=== PATIENT | female | born 1980 | race Caucasian/White ===

== ENCOUNTER 2018-03-09 11:41 | Emergency (ER) | payer MEDICAID ==
--- NOTE | 2018-03-09 12:18 | EKG REPORT ---
SEVERITY:- BORDERLINE ECG - SINUS RHYTHM PROBABLE LEFT ATRIAL ABNORMALITY : Confirmed by: Lashell Seay MD 09-Mar-2018 12:17:57
[2018-03-09] MEDS ORDERED: ASPIRIN 325 MG TABLET PO ONE (12:19)
--- NOTE | 2018-03-09 12:26 | ER Document Report ---
ED Medical Screen (RME) - General Chief Complaint: Chest Pain > 30 Stated Complaint: CHEST PAIN Time Seen by Provider: 03/09/18 12:19 Mode of Arrival: Ambulatory Information source: Patient TRAVEL OUTSIDE OF THE [place] IN LAST 30 DAYS: No - HPI Patient complains to provider of: cp Onset: Yesterday - pt with onset of SSCP since last night. Denies SOB, N,V - Related Data Allergies/Adverse Reactions: No Known Allergies Allergy (Verified 03/09/18 11:42) Physical Exam - Vital signs Vitals: Temp Pulse Resp BP Pulse Ox 98.1 F 93 18 127/83 H 99 03/09/18 11:52 03/09/18 11:52 03/09/18 11:52 03/09/18 11:52 03/09/18 11:52 Course - Vital Signs Vital signs: Temp Pulse Resp BP Pulse Ox 98.1 F 93 18 127/83 H 99 03/09/18 11:52 03/09/18 11:52 03/09/18 11:52 03/09/18 11:52 03/09/18 11:52
[2018-03-09 12:54] LABS: ABSOLUTE EOSINOPHILS # (AUTO) 0.2 10^3/uL (0.0-0.6); ABSOLUTE LYMPHOCYTES (AUTO) 2.5 10^3/uL (0.5-4.7); ABSOLUTE MONOCYTES (AUTO) 0.8 10^3/uL (0.1-1.4); ABSOLUTE NEUT (AUTO) 7.5 10^3/uL (1.7-8.2); BASOPHILS % (AUTO) 0.1 % (0-2); EOSINOPHILS % (AUTO) 1.5 % (0-6); HEMATOCRIT 41.1 % (36.0-47.0); LYMPHOCYTES % (AUTO) 22.9 % (13-45); MEAN CORPUSCULAR HEMOGLOBIN 30.7 pg (27.0-33.4); MEAN CORPUSCULAR VOLUME 90 fl (80-97); PLATELET COUNT 313 10^3/uL (150-450); RED BLOOD COUNT 4.55 10^6/uL (3.72-5.28); RED CELL DISTRIBUTION WIDTH 12.8 % (11.5-14.0); SEGMENTED NEUTROPHILS % (AUTO) 68.5 % (42-78); TOTAL CELLS COUNTED % (AUTO) 100 %
[2018-03-09 13:29] LABS: ALANINE AMINOTRANSFERASE 54 U/L (9-52); ALBUMIN 4.5 g/dL (3.5-5.0); ALKALINE PHOSPHATASE 116 U/L (38-126); ANION GAP 12 (5-19); ASPARTATE AMINO TRANSFERASE 28 U/L (14-36); BILIRUBIN,DIRECT 0.2 mg/dL (0.0-0.4); BILIRUBIN,TOTAL 0.2 mg/dL (0.2-1.3); BLOOD UREA NITROGEN 11 mg/dL (7-20); CALCIUM 9.5 mg/dL (8.4-10.2); CARBON DIOXIDE 25 mmol/L (22-30); CHLORIDE 106 mmol/L (98-107); CREATINE KINASE 47 U/L (30-135); GLUCOSE 91 mg/dL (75-110); POTASSIUM 4.6 mmol/L (3.6-5.0); TOTAL PROTEIN 7.6 g/dL (6.3-8.2)
[2018-03-09 13:49] LABS: CREATINE KINASE MB < 0.22 ng/mL (<4.55); TROPONIN I < 0.012 ng/mL
[2018-03-09] MEDS ORDERED: ONDANSETRON 4 MG TAB.RAPDIS PO ONE (13:56)
[2018-03-09] MEDS ORDERED: MORPHINE SULFATE 10 MG/ML INJ IV ONE (13:56)
--- NOTE | 2018-03-09 14:01 | ER Document Report ---
ED General - General Chief Complaint: Chest Pain > 30 Stated Complaint: CHEST PAIN Time Seen by Provider: 03/09/18 12:19 Mode of Arrival: Ambulatory Information source: Patient, Parent, [facility] Records Notes: 37-year-old female with medical history of seasonal allergies presents with complaint of chest pain that started yesterday evening while at rest. Patient' s pain is located on the left side of her chest. She describes it as a tightness that does not radiate. Pain is worse with only with palpation, movement. She denies pain with inspiration. She denies any recent illness including cough, fever, chills, nausea, vomiting, abdominal pain. She denies history of PE or DVT. She is a current everyday smoker. She denies any family history of early cardiac disease. TRAVEL OUTSIDE OF THE [place] IN LAST 30 DAYS: No - HPI Onset: Yesterday Onset/Duration: Gradual, Persistent, Worse Quality of pain: Pressure, Other - Tightness Severity: Moderate Pain Level: 2 Associated symptoms: Chest pain. denies: Nonproductive cough, Productive cough , Fever, Hurts to breath, Leg swelling, Nausea, Vomiting, Shortness of breath Exacerbated by: Movement Relieved by: Remaining still Similar symptoms previously: Yes Recently seen / treated by doctor: No - Related Data Allergies/Adverse Reactions: No Known Allergies Allergy (Verified 03/09/18 12:23) Past Medical History - General Information source: Patient - Social History Smoking Status: Current Every Day Smoker Cigarette use (# per day): Yes - 10 Chew tobacco use (# tins/day): No Smoking Education Provided: Yes - 4 minutes of smoking cessation discussed with patient Frequency of alcohol use: Rare Drug Abuse: None Lives with: Family Family History: Reviewed & Not Pertinent Patient has suicidal ideation: No Patient has homicidal ideation: No - Medical History Medical History: Negative Renal/ Medical History: Denies: Hx Peritoneal Dialysis Past Surgical History: Reports: Hx Section, Hx Gynecologic Surgery - , Review of Systems - Review of Systems Notes: REVIEW OF SYSTEMS: CONSTITUTIONAL : Denies fever, chills, or sweats. Denies recent illness. Denies weight loss, recent hospitalizations. EENT: Denies visual changes, eye pain. Denies nasal or sinus congestion or discharge. Denies sore throat, oral lesions, difficulty swallowing. CARDIOVASCULAR: Denies palpitations. Denies lower extremity edema. RESPIRATORY: Denies cough, cold, or chest congestion. Denies shortness of breath, wheezing. GASTROINTESTINAL: Denies abdominal pain or distention. Denies nausea, vomiting , or diarrhea. Denies blood in vomitus, stools, or per rectum. Denies black, tarry stools. Denies constipation. GENITOURINARY: Denies difficulty urinating, painful urination, frequency, blood in urine, or vaginal discharge. MUSCULOSKELETAL: Denies back or neck pain or stiffness. Denies joint pain or swelling. SKIN: Denies rash, lesions or sores. HEMATOLOGIC : Denies easy bruising or bleeding. LYMPHATIC: Denies swollen glands. NEUROLOGICAL: Denies confusion or altered mental status. Denies passing out or loss of consciousness. Denies dizziness or lightheadedness. Denies headache. Denies weakness or paralysis. Denies problems difficulty with ambulation, slurred speech. Denies sensory loss, numbness, or tingling. Denies seizures. PSYCHIATRIC: Denies anxiety or stress. Denies depression, suicidal ideation, or homicidal ideation. Denies visual or auditory hallucinations. Physical Exam - Vital signs Vitals: Temp Pulse Resp BP Pulse Ox 98.1 F 93 18 127/83 H 99 03/09/18 11:52 03/09/18 11:52 03/09/18 11:52 03/09/18 11:52 03/09/18 11:52 Interpretation: No: Tachycardic, Hypoxic, Febrile - Notes Notes: PHYSICAL EXAMINATION: GENERAL: Well-appearing, well-nourished and in no acute distress. HEAD: Atraumatic, normocephalic. EYES: Pupils equal round and reactive to light, extraocular movements intact, conjunctiva are normal. ENT: Nares patent, oropharynx clear without exudates. Moist mucous membranes. NECK: Normal range of motion, supple without lymphadenopathy LUNGS: Breath sounds clear to auscultation bilaterally and equal. No wheezes rales or rhonchi. HEART: Regular rate and rhythm without murmurs. Reproducible chest wall tenderness with palpation of the left chest. No obvious deformity, ecchymosis, crepitus. ABDOMEN: Soft, nontender, nondistended abdomen. No guarding, no rebound. No masses appreciated. Female : deferred Musculoskeletal: Normal range of motion, no pitting or edema. No cyanosis. NEUROLOGICAL: Cranial nerves grossly intact. Normal speech, normal gait. Normal sensory, motor exams PSYCH: Normal mood, normal affect. SKIN: Warm, Dry, normal turgor, no rashes or lesions noted. Course - Re-evaluation Re-evalutation: Laboratory 03/09/18 03/09/18 03/09/18 12:30 12:30 12:30 WBC 11.0 H RBC 4.55 Hgb 14.0 Hct 41.1 MCV 90 MCH 30.7 MCHC 34.0 RDW 12.8 Plt Count 313 Seg Neutrophils % 68.5 Lymphocytes % 22.9 Monocytes % 7.0 Eosinophils % 1.5 Basophils % 0.1 Absolute Neutrophils 7.5 Absolute Lymphocytes 2.5 Absolute Monocytes 0.8 Absolute Eosinophils 0.2 Absolute Basophils 0.0 Sodium 143.0 Potassium 4.6 Chloride 106 Carbon Dioxide 25 Anion Gap 12 BUN 11 Creatinine 0.53 Est GFR ( Amer) > 60 Est GFR (Non-Af Amer) > 60 Glucose 91 Calcium 9.5 Total Bilirubin 0.2 Direct Bilirubin 0.2 Neonat Total Bilirubin Not Reportable Neonat Direct Bilirubin Not Reportable Neonat Indirect Bili Not Reportable AST 28 ALT 54 H Alkaline Phosphatase 116 Creatine Kinase 47 CK-MB (CK-2) < 0.22 Troponin I < 0.012 Total Protein 7.6 Albumin 4.5 Chest X-Ray 03/09/18 12:19 IMPRESSION: NO ACUTE RADIOGRAPHIC FINDING IN THE CHEST. 37-year-old female with medical history of seasonal allergies presents with complaint of chest pain that started yesterday evening while at rest. Patient' s pain is located on the left side of her chest. She describes it as a tightness that does not radiate. Pain is worse with only with palpation, movement. She denies pain with inspiration. She denies any recent illness including cough, fever, chills, nausea, vomiting, abdominal pain. She denies history of PE or DVT. She is a current everyday smoker. She denies any family history of early cardiac disease. Lab testing including cardiac enzymes wnl. Patient received morphine and aspirin. Smoking cessation advised. Patient does have upcoming appoinment in four days with pcp which she was strongly encouraged to keep. 03/09/18 15:04 Heart score 1 for risk factor of smoking. Patient is PERC negative. EKG shows normal sinus rhythm at a rate of 80. 03/09/18 15:07 03/09/18 18:11 - Vital Signs Vital signs: Temp Pulse Resp BP Pulse Ox 98.1 F 93 13 117/75 100 03/09/18 11:52 03/09/18 11:52 03/09/18 15:25 03/09/18 15:25 03/09/18 15:25 - Laboratory Result Diagrams: 03/09/18 12:30 03/09/18 12:30 Laboratory results interpreted by me: 03/09/18 03/09/18 12:30 12:30 WBC 11.0 H ALT 54 H - Diagnostic Test Radiology reviewed: Image reviewed, Reports reviewed - EKG Interpretation by Me EKG shows normal: Sinus rhythm Rate: Normal Rhythm: NSR When compared to previous EKG there are: Previous EKG unavailable Discharge - Discharge Clinical Impression: Chest wall pain, Elevated BP without diagnosis of hypertension, Tobacco use Condition: Good Disposition: HOME, SELF-CARE Instructions: Anti-Inflammatory Medication ([facility]), Chest Wall Pain ([facility]) Additional Instructions: Follow up with your physician tomorrow for further care or return to the ED IMMEDIATELY if symptoms worsen or new concerns occur. If you cannot afford to follow up with your primary care physician a list of low cost clinics have been provided at the end of your discharge papers as well. Prescriptions: Ibuprofen [Motrin 600 Mg Tablet] 600 mg PO TID #15 tablet Forms: Elevated Blood Pressure, Smoking Cessation Education
--- NOTE | 2018-03-09 14:28 | RADIOLOGY REPORT (SQ) ---
EXAM DESCRIPTION: CHEST 2 VIEWS COMPLETED DATE/TIME: 03/09/2018 2:19 pm REASON FOR STUDY: cp COMPARISON: None. EXAM PARAMETERS: NUMBER OF VIEWS: two views TECHNIQUE: Digital Frontal and Lateral radiographic views of the chest acquired. RADIATION DOSE: NA LIMITATIONS: none FINDINGS: LUNGS AND PLEURA: No opacities, masses or pneumothorax. No pleural effusion. MEDIASTINUM AND HILAR STRUCTURES: No masses or contour abnormalities. HEART AND VASCULAR STRUCTURES: Heart normal size. No evidence for failure. BONES: No acute findings. HARDWARE: None in the chest. OTHER: No other significant finding. IMPRESSION: NO ACUTE RADIOGRAPHIC FINDING IN THE CHEST. TECHNICAL DOCUMENTATION: JOB ID: [id number] [employer]- All Rights Reserved Reading location - IP/workstation name: [email or web address]
[2018-03-09 15:35] VITALS: BP 117/75
== END 2018-03-09 15:35 | disposition home or self-care (01) ==
LOC: ER 11:41
DX: R07.89 Other chest pain (principal); R03.0 Elevated blood-pressure reading, without diagnosis of hypertension; F17.210 Nicotine dependence, cigarettes, uncomplicated; Z72.0 Tobacco use
CPT/HCPCS: 93005; 99285; 96374; 36415; 82553; 82550; 85025; 80053; 84484; 71046; 93010; S0119; J2270